=== PATIENT | female | born 1980 | race Caucasian/White ===

== ENCOUNTER 2016-08-15 00:14 | Emergency (ER) | payer BC | END 2016-08-15 03:35 | disposition home or self-care (01) | LOC: ER1 00:14 | DX: R20.2 Paresthesia of skin (principal); L03.116 Cellulitis of left lower limb; F17.210 Nicotine dependence, cigarettes, uncomplicated; T78.40XA Allergy, unspecified, initial encounter; X58.XXXA Exposure to other specified factors, initial encounter | CPT/HCPCS: 99283 ==

== ENCOUNTER 2016-08-16 17:27 | Emergency (ER) | payer BC | END 2016-08-16 20:30 | disposition home or self-care (01) | LOC: ER1 17:27 | DX: L02.416 Cutaneous abscess of left lower limb (principal); R20.2 Paresthesia of skin; F17.210 Nicotine dependence, cigarettes, uncomplicated; Z88.1 Allergy status to other antibiotic agents; Z79.899 Other long term (current) drug therapy | CPT/HCPCS: 10061; 87070; 87077; 87186; 87205; 99282 ==

== ENCOUNTER 2016-08-18 13:05 | Emergency (ER) | payer BC | END 2016-08-18 14:28 | disposition home or self-care (01) | LOC: ER1 13:05 | DX: Z48.03 Encounter for change or removal of drains (principal); F17.210 Nicotine dependence, cigarettes, uncomplicated; Z88.1 Allergy status to other antibiotic agents; Z79.899 Other long term (current) drug therapy | CPT/HCPCS: 99282 ==